=== PATIENT | female | born 1985 | race Caucasian/White ===

== ENCOUNTER 2016-12-23 21:00 | Emergency (ER) | payer OTHER ==
[~2016-12-23] VITALS: Ht 170.2 cm; Wt 59.0 kg
[~2016-12-23 21:00] MED LIST: CYMBALTA; FLAGYL PO; LEVAQUIN PO; PHENERGAN PO; PROTONIX PO; SEROQUEL; SUBUTEX PO; ZOFRAN PO; [UNRECOGNIZED DRUG - OTHER]
== END 2016-12-23 22:36 | disposition home or self-care (01) ==
LOC: CFTX 21:00 → CED 21:00 → CFTX 22:13
DX: S46.912A Strain of unspecified muscle, fascia and tendon at shoulder and upper arm level, left arm, initial encounter (principal); F17.210 Nicotine dependence, cigarettes, uncomplicated; W18.30XA Fall on same level, unspecified, initial encounter; Y92.009 Unspecified place in unspecified non-institutional (private) residence as the place of occurrence of the external cause
CPT/HCPCS: 99283